=== PATIENT | male | born 1945 | race Caucasian/White ===

== ENCOUNTER 2017-01-09 18:40 | Observation (INO) | payer MEDICARE, BC ==
[~2017-01-09] VITALS: Ht 172.7 cm; Wt 121.5 kg
--- NOTE | ~2017-01-09 | HEMODYNAMI ---
PATIENT:BEST DENT MEDICAL RECORD: [id number] : 45 LOCATION:[address] ADMISSION DATE: 01/09/17 Generatedon:01/10/201716:39 Patient name: BEST DENT Patient #: [id number] SSN: : 1945 Date of study: 01/10/2017 Page: Of Hemodynamic Procedure Report Patient Data Patient Demographics Procedure consent was obtained First Name: BEST Gender: Male Last Name: JAILENE : 1945 [facility] Initial: GABBIE Age: 71 year(s) Patient #: [id number] Race: Additional ID: [id number] Contact details Address: [address] [place] [address] State: [place] City: [place] Zip code: [address] Past Medical History Allergies: No known allergies Admission Admission Data Admission Date: 01/09/2017 Admission Time: 18:40 Room #: 2121 Procedure Procedure Types Cath Procedure Diagnostic Procedure LHC LHC w/Coronaries PCI Procedure Coronary Stent Initial Miscellaneous Procedures Moderate Sedation up to 30 minutes Procedure Description Procedure Date Procedure Date: 01/10/2017 Procedure Start Time: 16:20 Procedure End Time: 16:38 Procedure Staff Name Function Mike José MD Performing Physician Dieudonne Zamora RT Scrub Anahi Best RT Monitor Marylu Skinner RN Nurse Procedure Data Cath Procedure Fluoroscopy Diagnostic fluoroscopy Total fluoroscopy Time: 3.1 time: 3.1 min min Diagnostic fluoroscopy Total fluoroscopy dose: dose: 533.2 mGy 533.2 mGy Contrast Material Contrast Material Type Amount (ml) Isovue 300 82 Entry Location Entry Primary Successful Side Size Upsize Upsize Entry Closure Lloyd ccessful Closure Location (Fr) 1 (Fr) 2 (Fr) Remarks Device Remarks Radial Right 6 Fr Mechanical artery Short Compression Estimated blood loss: 10 ml Diagnostic catheters Device Type Used For End Catheter Placement Terumo 5Fr Ham 110cm LV Angiography catheter Terumo 5Fr Ham 110cm Right Coronary catheter Angiography Procedure Complications No complications Procedure Medications Medication Administration Route Dosage Oxygen NC 2 l/min Heparin Flush Bag added to field 2 bags (1000units/500ml NS) Lidocaine 2% added to field 20 Radial Cocktail added to field 1 syringe (Verapomil 2mg/Nitro 400mcg/Heparin 1500units) Fentanyl I.V. 50 mcg Versed I.V. 1 mg Fentanyl I.V. 25 mcg Versed I.V. 0.5 mg Radial Cocktail I.A. 1 syringe (Verapomil 2mg/Nitro 400mcg/Heparin 1500units) Heparin Bolus I.V. 4000 units Plavix P.O. 75 mg Hemodynamics Rest Heart Rate: 87 (bpm) Snapshots Pre Cath Intra NCS Post Cath Vital Signs Time Heart Resp SPO2 NIBP (mmHg) Rhythm Pain Sedation Rate (ipm) (%) Status Level (bpm) 16:11:52 75 16 94 170/93(142) NSR 0 (11) 10(A) , No pain 16:16:37 72 17 92 171/90(131) NSR 0 (11) 9(A) , No pain 16:21:19 73 18 95 163/97(133) NSR 0 (11) 9(A) , No pain 16:25:48 73 19 97 116/70(86) NSR 0 (11) 9(A) , No pain 16:31:18 81 16 93 156/77(117) NSR 0 (11) 9(A) , No pain 16:35:54 79 9 94 140/82(106) NSR 0 (11) 10(A) , No pain Medications Time Medication Route Dose Verified Delivered Reason Note s Effectiveness by by 16:12:38 Oxygen NC 2 l/min Marylu Marylu used for Skinner Skinner tub wash operator RN 16:12:45 Heparin Flush added 2 bags Marylu Marylu used for Bag to Skinner Skinner procedure (1000units/500ml field RN RN NS) 16:12:53 Lidocaine 2% added 20ml Marylu Marylu used for to vial Skinner Skinner procedure field RN RN 16:13:01 Radial Cocktail added 1 Marylu Marylu used for (Verapomil to syringe Skinner Skinner procedure 2mg/Nitro field RN RN 400mcg/Heparin 1500units) 16:15:40 Fentanyl I.V. 50 mcg Marylu Marylu for sedation Skinner Skinner RN RN 16:15:45 Versed I.V. 1 mg Marylu Marylu for sedation Susanne Skinner RN RN 16:22:22 Fentanyl I.V. 25 mcg Marylu Marylu for sedation Susanne Skinner RN RN 16:22:25 Versed I.V. 0.5 mg Marylu Marylu for sedation Susanne Skinner RN RN 16:23:33 Radial Cocktail I.A. 1 Marylu Mike for (Verapomil syringe Susanne José MD vasodilation 2mg/Nitro RN 400mcg/Heparin 1500units) 16:30:25 Heparin Bolus I.V. 4000 Marylu Marylu for units Susanne Skinner anticoagulation RN RN 16:34:01 Plavix P.O. 75 mg Marylu Marylu for Skinner Susanne antiplatelet RN RN therapy Procedure Log Time Note 15:50:06 Marylu Skinner RN sent for patient. Start room use. 15:50:07 Time tracking: Regular hours 15:50:10 Plan of Care:Hemodynamics will remain stable., Cardiac rhythm will remain stable., Comfort level will be maintained., Respiratory function will remain adequate., Patient/ family verbilizes understanding of procedure., Procedure tolerated without complication., Recovers from procedure without complications.. 16:09:04 Patient received from PCU to CCL 3 Alert and oriented. Tansferred to table in Supine position. 16:09:05 Warm blankets applied, and rashmi hugger turned on for patient comfort. 16:09:05 Correct patient and procedure confirmed by team. 16:09:06 Signed procedure consent form obtained from patient. 16:09:07 ECG and BP/O2 sat monitors applied to patient. 16:09:08 Full Disclosure recording started 16:10:07 Vital chart was started 16:10:10 Rhythm: sinus rhythm 16:10:17 H&P Date Dictated: 01/10/2017 Within 30 days and on chart., H&P Addendum completed by physician on day of procedure. (MUST COMPLETE FOR ALL OUTPATIENTS). 16:10:18 Pre-procedure instructions explained to patient. 16:10:18 Pre-op teaching completed and patient verbalized understanding. 16:10:19 Family in patients room. 16:10:25 Patient NPO since Midnight. 16:10:32 Patient allergic to No known allergies 16:10:35 Is the patient allergic to Iodine/contrast media? No. 16:10:36 Is patient on blood thinner?Yes 16:10:38 ACC The patient was administered the following blood thiners within the last 24 hours: ACCPlavix 16:10:44 Patient diabetic? Yes. 16:10:45 If diabetic: On Metformin? Yes 16:10:49 If on Metformin: Last Dose? 01/09/2017 16:10:54 Previous problem with sedation/anesthesia? No ? 16:10:55 Snore? Yes 16:10:55 Sleep apnea? Yes 16:10:56 Deviated septum? No 16:10:57 Opens mouth fully? Yes 16:10:58 Sticks out tongue? Yes 16:11:04 Airway obstruction? No ? 16:11:06 Dentures? No ? 16:11:09 Pre procedure: right dorsailis pedis pulse 2+ Normal; easily identifiable; not easily obliterated 16:11:11 Modified Chung's test Ulnar < 7 seconds 16:11:13 Patient pain scale 0/10 ?. 16:11:16 IV patent on arrival in left hand with 0.9% NaCl at [facility]. 16:11:21 Lab results completed and on chart. 16:11:24 Right Radial & Right Groin area was prepped with chlora-prep and draped in sterile fashion 16:11:24 Alarms reviewed by R. N. 16:11:25 Sharps counted by scrub and verified by R.N. 16:11:31 Use device set Radial Dx 16:11:31 Acist Syringe opened to sterile field. 16:11:32 Medline Cath Pack opened to sterile field. 16:11:32 Bag Decanter opened to sterile field. 16:11:33 Terumo 6Fr Slender Glidesheath opened to sterile field. 16:11:33 St Huber 260cm J .035 wire opened to sterile field. 16:11:33 Acist Hand Control opened to sterile field. 16:11:34 Acist Manifold opened to sterile field. 16:11:34 Tegaderm 4 x 4 opened to sterile field. 16:12:38 Oxygen 2 l/min NC was administered by Marylu Skinner RN; used for procedure; 16:12:45 Heparin Flush Bag (1000units/500ml NS) 2 bags added to field was administered by Marylu Skinner RN; used for procedure; 16:12:53 Lidocaine 2% 20ml vial added to field was administered by Marylu Skinner RN; used for procedure; 16:13:01 Radial Cocktail (Verapomil 2mg/Nitro 400mcg/Heparin 1500units) 1 syringe added to field was administered by Marylu Skinner RN; used for procedure; 16:13:37 Final Timeout: patient, procedure, and site verified with staff and physician. All members of the team are in agreement. 16:13:39 Right Radial & Right Groin site verified by team. 16:13:41 Physical assessment completed. ASA score P 2 - A patient with mild systemic disease as per Mike José MD. 16:13:44 Sedation plan: IV Moderate Sedation Versed, Fentanyl 16:15:40 Fentanyl 50 mcg I.V. was administered by Marylu Skinner RN; for sedation; 16:15:45 Versed 1 mg I.V. was administered by Marylu Skinner RN; for sedation; 16:20:19 Procedure started. 16:20:34 Local anesthetic to right radial artery with Lidocaine 2% by Mike José MD.INITIAL ACCESS ONLY 16:21:12 Cook 21G 4cm Radial Needle opened to sterile field. 16:22:22 Fentanyl 25 mcg I.V. was administered by Marylu Skinner RN; for sedation; 16:22:25 Versed 0.5 mg I.V. was administered by Marylu Skinner RN; for sedation; 16:22:32 A 6 Fr Short sheath was inserted into the Right Radial artery 16:22:35 Zero performed for pressure channel P1 16:23:09 Baseline sample Acquired. 16:23:33 Radial Cocktail (Verapomil 2mg/Nitro 400mcg/Heparin 1500units) 1 syringe I.A. was administered by Mike José MD; for vasodilation; 16::41 A Terumo 5Fr Ham 110cm catheter was advanced over the wire and used for LV Angiography. 16:24:37 LV gram done using RILEY 16:24:42 Injector settings: Ml/sec: 5, Volume: 15, 16:24:52 EF : 60 % 16:25:19 A Terumo 5Fr Ham 110cm catheter was advanced over the wire and used for Right Coronary Angiography. 16:25:48 Catheter removed. 16:25:56 Cordis 6FR XBLAD 3.5 guide catheter opened to sterile field. 16:26:07 6 Fr XBLAD 3.5 guide catheter was inserted over the wire 16:28:33 LCA angiography performed. 16:29:01 HashParade BasixCompak Inflation Kit opened to sterile field. 16:29:06 Rodriguez Whisper J 300cm 0.014 guide wire opened to sterile field. 16:30:14 Whisper wire advanced. 16:30:25 Heparin Bolus 4000 units I.V. was administered by Marylu Skinner RN; for anticoagulation; 16::28 Inflation Number: 1 A Biofreedom 3.5 x 11 stent (No Cost Implant) was prepped and advanced across the Mid LAD. The stent was deployed at 17 VITO for 0:06 (min:sec). 16:31:50 Stent catheter was removed intact over wire. 16:31:50 Wire removed. 16:31:50 Guide catheter removed. 16::58 Sheath removed intact; hemostasis achieved with Mechanical Compression to the Right Radial artery. 16:32:01 Procedure ended.(Physican Out) 16:32:17 Terumo TR Band Large opened to sterile field. 16:32:28 Fluoroscopy time 03.10 minutes. 16:32:32 Fluoroscopy dose: 533.2 mGy 16:32:32 Flurop Dose total: 533.2 16:32:35 Contrast amount:Isovue 300 82ml. 16:32:36 Sharps counted by scrub and verified by R.N. 16:32:39 TR band inflated with 12cc of air. 16:32:39 Insertion/operative site no bleeding no hematoma. 16:32:46 Post right radial artery:stable, clean and dry 16:32:47 Post Procedure Pulses reassessed and unchanged 16:32:52 Post-procedure physical assessment completed. ASA score P 2 - A patient with mild systemic disease as per Mike José MD. 16:32:54 Post procedure rhythm: unchanged. 16:32:56 Estimated blood loss: 10 ml 16:32:57 Post procedure instruction explained to patient.Patient verbalizes understanding. 16:32:58 Patient needs reinforcement of post procedure teaching. 16:33:07 Procedure type changed to Cath procedure, Diagnostic procedure, LHC, LHC w/Coronaries, PCI procedure, Coronary Stent Initial, Miscellaneous Procedures, Moderate Sedation up to 30 minutes 16:33:13 Procedure Complication : No complications 16:33:17 See physician's report for complete and final results. 16:34:01 Plavix 75 mg P.O. was administered by Marylu Skinner RN; for antiplatelet therapy; 16:37:12 Procedure and supply charges have been captured, reviewed, submitted and are correct. 16:37:13 Vital chart was stopped 16:37:15 Report given to PCU. 16:37:18 Patient transfered to PCU with Bed. 16:38:17 Procedure ended. 16:38:17 Full Disclosure recording stopped 16:38:48 End room use (Document Last) Intervention Summary Intervention Notes Time ActionType Lesion and Equipment Action# Pressure Duration Attributes Used 16:31:28 Place stent Mid LAD Biofreedom 1 17 00:06 3.5 x 11 stent (No Cost Implant) Device Usage Item Name Manufacture Quantity Catalog Hospital Part Current Minimal Lot# / Number Charge Number Stock Stock Serial# Code Acist Acist 1 08059 059304 950847 790917 20 Syringe Medical Systems Inc Medline Cardinal 1 [id number] 060460 13261 863925 5 Cath Pack Health Bag Microtek 1 2002S 525297 09282 784331 5 Showcase Gig Medical Inc. Terumo 6Fr Terumo 1 [id number] 789866 005330 525567 [address] St Huber 1 259732 496131 518939 333092 30 260cm J .035 wire Acist Hand Acist 1 06526 992797 930502 759757 5 Control Medical Systems Inc Acist Acist 1 88697 167419 263763 611096 5 Manifold Medical Systems Inc Tegaderm 4 3M 1 1626W 617892 247863 856948 5 x 4 Cook 21G Cook Medical 1 K85142 119028 606699 487072 5 4cm Radial Needle Terumo 5Fr Terumo 1 40-1144 609666 206692 407727 5 Ham 110cm catheter Cordis 6FR Cardinal 1 [id number] 078786 698279 746311 10 XBLAD 3.5 Health guide catheter Merit Merit 1 SR7595 802631 076929 340324 15 The Daily Muse Medical Inflation Kit Rodriguez Rodriguez 1 [id number] 836584 735978 659121 5 Whisper J Vascular 300cm 0.014 guide wire Biofreedom Biosensors 1 [place] 418791 801768 338938 5 [id number] 3.5 x 11 [place] SA stent (No Cost Implant) Terumo TR Terumo 1 [id number] 802210 453599 708227 40 Band Large Signature Audit [place] Stage Time Signature Unsigned Intra-Procedure 01/10/2017 Anahi 4:38:58 PM Counts RT(R) Signatures Monitor : Anahi Signature : Counts RT Date : Time : [place] [address] [place] [address]
[~2017-01-09 18:40] MED LIST: ALTACE10 MG PO; AMBIEN10 MG PO; ASPIRIN 81 MG E81 MG PO; ASPIRIN EC81 M1 PO; ASPIRIN325 MG PO; CELEXA20 MG PO; DITROPAN X5 MG/BOTTL PO; ECOTRIN325 MG PO; FERRETTS324 MG PO; FLOMAX0.4 MG PO; GLUCOPHAGE500 MG PO; HYDROCODON-ACE1 EAC7 PO; HYDROCODONE-APA1 TAB PO; IRON PO; ISOSORBIDE DINI30 MG PO; LASIX80 MG PO; LEVOTHROID100 MCG PO; LIPITOR80 MG PO; NITROSTAT0.4 MG SL; NORCO 10/325 TA1 TA1 PO; NORVASC10 MG PO; PEPCID20 MG PO; PLAVIX75 MG PO; PROSCAR5 MG PO; PROTONIX40 MG PO; REQUIP0.25 MG; REQUIP0.5 MG PO; REQUIP1 MG PO; TENORMIN25 MG PO
[2017-01-09 19:00] VITALS: BP 168/90
[2017-01-09] MEDS ORDERED: BUSPAR10 MG PO (21:33)
[2017-01-09] MEDS ORDERED: PENICILLIN V P500 MG PO (21:34)
[2017-01-09 22:35] LABS: CKMB 0.7 U/L (0.0-3.6); CREATINE KINASE 91 UL (21-232); TROPONIN-I < 0.017 ng/mL (0.000-0.060)
[2017-01-09 22:47] VITALS: Ht 172.7 cm; Wt 121.5 kg
[2017-01-10] VITALS: BP 130/74
[2017-01-10 04:00] VITALS: BP 164/85
--- NOTE | 2017-01-10 07:23 | NUR ---
ASSESSMENT DONE. DENIES NEEDS.
[2017-01-10 08:00] VITALS: BP 150/80
--- NOTE | 2017-01-10 10:22 | NUR ---
RESP UL ON . EATING BRK WITHOUT NEEDS VOICED. CALL LIGHT IN REACH. WILL CONT. PLAN OF CARE.
[2017-01-10 12:00] VITALS: BP 153/68
[2017-01-10 12:29] LABS: BASOPHILS 0.5 % (0-2); EOSINOPHILS 5.6 % (0-7); HEMATOCRIT 39.9 % (42.0-54.0); HEMOGLOBIN 12.9 g/dL (13.5-17.5); IMMATURE GRANULOCYTES 0.4 % (0-5); MCH 30.3 pg (26.0-34.0); MCHC 32.3 g/dL (31.0-37.0); MCV 93.7 fL (80.0-100.0); MEAN PLATELET VOLUME 10.7 fL (7.4-10.4); NEUTROPHILS 60.5 % (40-80); PLATELET COUNT 159 10x3/uL (130-400); RBC 4.26 10x6/uL (4.20-6.10); RDW 14.8 % (11.5-14.5); WBC 5.7 10x3/uL (4.8-10.8)
[2017-01-10 12:38] LABS: CALC OSMOLALITY 283 mosm/kg (275-300); CALCIUM 8.8 mg/dL (8.5-10.1); CARBON DIOXIDE 26.9 mmol/L (21.0-32.0); CHLORIDE - SERUM 105 mmol/L (98-107); POTASSIUM - SERUM 3.7 mmol/L (3.5-5.1); SODIUM 140 mmol/L (136-145); UREA NITROGEN 12 mg/dL (7-18); eGFR NON AFRICAN AMERICAN 78 mL/min (90-120)
[2017-01-10 12:46] LABS: GLUCOSE 189 mg/dL (74-106)
--- NOTE | 2017-01-10 15:55 | NUR ---
TO EXTRACT MIXER PER BED
[2017-01-10 16:00] VITALS: BP 149/80
--- NOTE | 2017-01-10 16:50 | NUR ---
RETURNED FROM CARTRIDGE FILLER WITH TR-BAND TO RT WRIST. FAMILY AT SIDE.
--- NOTE | 2017-01-10 17:59 | NUR ---
WITHOUT CHANGES OR DISTRESS NOTED AT THIS TIME.
[2017-01-10 19:00] VITALS: BP 139/66
--- NOTE | 2017-01-10 20:30 | NUR ---
RIGHT WRIST TR BAND REMAINSING AIR RELEASED. TR BAND REMOVED AND DRESSING APPLIED TO WRIST. PT KONG WELL. INSTRUCTED TO NOT LIFT ANYTHING HEAVIER THAN 5 LBS AND TO KEEP DRESSING CDI. NOTIFY NURSE IF SWELLING, PAIN OR BLEEDING OCCUR. PT VERBALIZED UNDERSTANDING. WILL MONITOR.
--- NOTE | 2017-01-10 23:44 | NUR ---
PT RESTING WELL WITHOUT C/O OR DISTRESS NOTED. NO CHANGES NOTED IN ASSESSMENT. CALL LIGHT WITHIN REACH. WILL CONT TO MONITOR.
[2017-01-11 04:00] VITALS: BP 173/89
--- NOTE | 2017-01-11 07:45 | NUR ---
PATIENT IS RESTING QUIETLY WITH EYES CLOSED, HOB UP 60 DEGREES AND MOUTH AJAR. DID NOT DISTURB. MEDICAL PRACTICE MANAGER HAS TAKEN HIS VS TODAY AND THEY ARE WNL. CALL LIGHT IS WITHIN HIS REACH.
[2017-01-11 08:03] VITALS: BP 163/77
--- NOTE | 2017-01-11 09:00 | NUR ---
PATIENT RESTING WITH EYES CLOSED WHEN I ENTER ROOM. HE AWAKENED EASILY TO MY VOICE, BREAKFAST TRAY ON THE [id number]-CZI-OSRTV. MEDICATIONS TAKEN, DISCUSSED. HE IS WITHOUT C/O ANY KIND AND IS HOPING TO GO HOME TODAY.
--- NOTE | 2017-01-11 11:19 | NUR ---
EKG DONE. HE STATES THAT HE SELDOM EVER SLEEPS WITHOUT HIS CPAP. HE BELIEVES THAT HE WILL BE GOING HOME TODAY, HE HAS SEEN DR. GALVEZ. DENIES NEEDS, CALL LIGHT IS WITHIN REACH.
[2017-01-11 11:46] VITALS: BP 139/81
--- NOTE | 2017-01-11 14:00 | NUR ---
PATIENT DISCHARGED HOME. REVIEWED INSTRUCTIONS, PRESCRIPTIONS GIVEN, WOUND CARE DISCUSSED, NEED FOR FOLLOW UP APPT DISCUSSED. PATIENT AND PARTNER VOICED UNDERSTANDING. IV REMOVED FROM THE LEFT FA. WHEELED TO WAITING CAR.
--- NOTE | 2017-01-13 10:11 | OP ---
PATIENT NAME: BEST DENT MEDICAL RECORD: [id number] :45 LOCATION:D.M2 D.2121 ADMISSION DATE:01/09/17 SURGEON: CARMEL GALVEZ MD DATE OF OPERATION: 01/10/2017 PROCEDURES: 1. PTCA stent LAD. 2. Left heart catheterization. 3. Selective coronary angiography. 4. Left ventriculogram. INDICATION: Angina and coronary artery disease. PROCEDURE: After informed consent was obtained, after detailed explanation of risks, benefits as well as alternative therapies, the patient elected to proceed with angiogram and angioplasty. The right radial area was prepped and draped in normal sterile fashion. Right radial artery was cannulated via modified Seldinger technique with placement of 6-English sheath. All catheters exchanged through this sheath. FINDINGS: The left ventriculogram was performed in standard 30-degree RILEY view, reveals good cardiac wall motion throughout all segments. Overall ejection fraction estimated at 55-60%. SELECTIVE CORONARY ANGIOGRAPHY: 1. Left main has no significant angiographic disease. 2. Left anterior descending has previously placed stents. There is 70% in-stent restenosis in the mid vessel. 3. Left circumflex shows moderate irregularities, but no flow-limiting stenosis. Previously placed stents are widely patent. 4. Right coronary is small, nondominant, diffusely diseased. PTCA STENT OF THE LAD: The stent used is a 3.5 x 11 mm BioFreedom stent taken to 17 atmospheres. Result was 0% residual stenosis with advent JC-3 flow. This lesion was an 8-mm lesion in a 3.5-mm vessel. JC-3 flow before and after intervention, 0% residual stenosis after the intervention. OVERALL IMPRESSION: Successful percutaneous transluminal coronary angioplasty stent of the left anterior descending going from 70% in-stent restenosis to 0% residual stenosis. TRANSINT:[id number] Voice Confirmation ID: [id number] DOCUMENT ID: [id number] CARMEL GALVEZ MD at 1011 CC: [id number] DICTATION DATE: 01/10/17 1647 QUANTITATIVE MANAGER: 01/11/17 0153 DIS IN 01/11/17 [address] [address] [place] [address]
--- NOTE | 2017-01-13 10:11 | DS ---
PATIENT:BEST GALVEZ :45 MEDICAL RECORD: [id number] DISCHARGE SUMMARY ADMISSION DATE: 01/09/17 DISCHARGE DATE: 01/11/17 DISCHARGE DIAGNOSES: 1. Angina. 2. Coronary artery disease. 3. PTCA stent this admission. 4. Hypertension. 5. Hyperlipidemia. HOSPITAL COURSE: Mr. Galvez presents with anginal symptomatology, found to have single vessel coronary artery disease, underwent successful PTCA stent with an uneventful postop course. He was discharged home to continue aspirin and Plavix for next 30 days. TRANSINT:[id number] Voice Confirmation ID: [id number] DOCUMENT ID: [id number] CARMEL GALVEZ MD at 1011 CC: [id number] DICTATION DATE: 01/11/17 1034 CARE ASSOCIATE: 01/11/17 2343 DIS IN 01/11/17 [address] [address] [place] [address]
--- NOTE | 2017-01-13 10:11 | HP ---
PATIENT: BEST GALVEZ MEDICAL RECORD: [id number] ACCOUNT: [id number] LOCATION:[facility].2121 : 45 ADMISSION DATE: 01/09/17 HISTORY AND PHYSICAL EXAMINATION DIAGNOSES: 1. Unstable angina. 2. Coronary artery disease. 3. Previous cardiac intervention. 4. Hypertension. HISTORY OF PRESENT ILLNESS: Mr. Galvez has been having increasing episodes of chest pain, chest discomfort for the past 3 weeks. It has gotten to the point of unstable rest pain. He does have a past cardiac history. Last cardiac intervention was over a year ago. He does have a fractured elbow from a fall 4 months ago as well as a ganglion cyst on the left. He is in need of operative repair of these, but his anginal chest discomfort has come to the forefront. He is now here with angina. His troponin was normal. His EKG is with no acute ST-T abnormalities. REVIEW OF SYSTEMS: The patient reports easy bruising but reports no swollen glands. The patient reports no fever, no night sweats, no significant weight gain, no significant weight loss. No significant exercise tolerance. The patient reports no dry eyes, no irritation, no vision change. Patient reports no difficulty hearing and no ear pain. Patient reports no frequent nose bleeds or nose and sinus problems. Patient reports on arm pain on exertion. No shortness of breath while lying down. No history of heart murmur. Patient reports no cough, no wheezing or coughing up blood. Patient reports no abdominal pain, no vomiting. Normal appetite. No diarrhea and not vomiting blood. No nausea and no constipation. Patient reports no incontinence. No difficulty urinating. No hematuria. No increased frequency. Patient reports no muscle aches. No weakness, no arthralgias, no back pain. No swelling of the extremities. Patient reports no abnormal mole, no jaundice, no rashes. Reports no loss of consciousness. No weakness and no numbness. No seizures, dizziness, or headaches. The patient reports no depression, no sleep disturbance, feeling safe in a relationship and no alcohol abuse. Patient reports on fatigue. Reports no runny nose or sinus pressure. No itching, no hives, and no frequent sneezing. PHYSICAL EXAMINATION: GENERAL APPEARANCE: Well-nourished, well-developed, appears stated age. Level of distress, comfortable. PSYCHIATRIC: Mental status, alert, normal affect. Orientation, oriented to time, place and person. EYES: Lids and conjunctiva, noninjected. No discharge, no pallor. ENT: Lips, teeth, gums, normal dentition. Oropharynx, no cyanosis, no pallor. NECK: Carotid arteries, bilateral normal upstroke, no bruits, no thrills. JUGULAR VEINS: No jugular venous pressure or distention. CERVICAL LYMPH NODES: Nontender, nonenlarged. THYROID: Not enlarged. Nontender. No nodules. LUNGS: Respiratory effort, unlabored. CHEST: Normal curvature. No thoracic deformity. No chest wall tenderness. Percussion, resonant. Auscultation, clear. No wheezes, no rales, no rhonchi. CARDIOVASCULAR: Precordial exam, nondisplaced. No heaves or pericardial thrills. Rate and rhythm, regular. Heart sounds, normal S1, normal S2. No S3, HISTORY AND PHYSICAL [id number] JAILENE,BEST GABBIE no gallop, no rub. Systolic murmur, not heard. Diastolic murmur, not heard. EXTREMITIES: No cyanosis, no edema. Peripheral pulses, full and equal in all extremities, except as noted. No bruits appreciated. ABDOMEN: Soft, nondistended. Normal aorta. No bruit. Nontender. No masses. Liver, nontender, no hepatomegaly. Spleen, nontender, no splenomegaly. MUSCULOSKELETAL: No joint tenderness. No joint swelling. No erythema. NEUROLOGICAL: Normal gait, normal strength, normal tone. SKIN: Warm and dry. OVERALL IMPRESSION: Chest discomfort compatible with angina in an unstable fashion, most likely has recurrent hemodynamically significant coronary artery disease. Due to the fact that he has an upcoming operation, we will proceed with coronary angiography and stent. With a stent that will require only 30 days of aspirin and Plavix we can get off that for the operative repair. TRANSINT:[id number] Voice Confirmation ID: [id number] DOCUMENT ID: [id number] CARMEL GALVEZ MD at 1011 CC: [id number] DICTATION DATE: 01/10/17 1007 COTTON FARMWORKER: 01/10/17 1052 DIS IN 01/11/17 [facility] [address] [place] [address]
== END 2017-01-11 14:00 | disposition home or self-care (01) ==
LOC: OBSVTIME 18:40 → D.M2 18:40
PROVIDERS: Internal Medicine Interventional Cardiology; ADMIT Internal Medicine Interventional Cardiology
DX: I25.119 Atherosclerotic heart disease of native coronary artery with unspecified angina pectoris (principal); T82.855A Stenosis of coronary artery stent, initial encounter; Y84.0 Cardiac catheterization as the cause of abnormal reaction of the patient, or of later complication, without mention of misadventure at the time of the procedure; Z00.6 Encounter for examination for normal comparison and control in clinical research program; I10 Essential (primary) hypertension; E78.5 Hyperlipidemia, unspecified
CPT/HCPCS: 93458; C9600

== ENCOUNTER 2017-04-13 15:12 | Inpatient (IN) | payer MEDICARE, BC ==
[~2017-04-13 15:12] MED LIST changes: +BUSPAR10 MG PO; +PENICILLIN V P500 MG PO
--- NOTE | 2017-04-13 15:15 | NUR ---
ARRIVE TO ROOM VIA EMS STRETCHER FROM [facility]. ALERT AND ORIENTED X4. AMBULATES TO BED. GAIT STEADY. OXYGEN AT 3L NC. USES HOME OXYGEN. REPORTS CHEST DISCOMFORT. CONTINUE ADMISSION PROCESS. REFUSES SCDs. AMBULATORY. GAIT STEADY.
[2017-04-13] MEDS ORDERED: CELEXA40 MG PO (15:24)
[2017-04-13 17:23] VITALS: BP 131/64; BMI 40.2
--- NOTE | 2017-04-13 19:00 | NUR ---
RECEIVED REPORT AND ASSUMED PT CARE FROM DAY SHIFT NURSE @ THIS TIME.
[2017-04-13] MEDS ORDERED: AMBIEN5 MG PO (19:36)
--- NOTE | 2017-04-13 19:45 | NUR ---
PT'S SIGNIFICANT OTHER AT NURSES STATION, CONCERNED IF PT WILL BE GETTING HIS PM MEDS TONIGHT. MEDICATION RECONCILED WITH PT AND SIGNIFICANT OTHER AT THE BEDSIDE. CALL TO DR ZARAGOZA, IMMEDIATELY RETURNS CALL. MEDICATIONS REVIEWED THAT PT WILL NEED TONIGHT AND ORDERS RECEIVED FOR PM MEDS TONIGHT. PT AND HIS SIGNIFICANT OTHER UPDATED ON POC AND VERBALIZED UNDERSTANDING. AWAITING NURSE FIBERGLASS AUTOBODY REPAIRER TO ACCESS MEDS JUST ORDERED. WILL MONITOR.
[2017-04-13 20:00] VITALS: BP 126/59
--- NOTE | 2017-04-13 21:30 | NUR ---
LEFT AC IV SITED IN HOSPITAL IN [place] HALF PULLED OUT OF AC AND KINKED. REMOVED AT THIS TIME WITH TIP INTACT. IV RESITED WITH 22 GA ANGIOCATH TO LEFT FOREARM X 1 STICK AND PT TOLERATED WELL.
[2017-04-14] VITALS: BP 132/66
--- NOTE | 2017-04-14 | NUR ---
PT RESTING WELL WITHOUT C/O OR DISTRESS NOTED. NO NEEDS VOICED. CALL LIGHT WITHIN REACH. WILL CONT TO MONITOR.
[2017-04-14 04:00] VITALS: BP 117/65
[2017-04-14 05:45] LABS: BASOPHILS 0 % (0-2); EOSINOPHILS 0 % (0-7); HEMATOCRIT 37.8 % (42.0-54.0); HEMOGLOBIN 12.3 g/dL (13.5-17.5); IMMATURE GRANULOCYTES 0.1 % (0-5); MCH 30.2 pg (26.0-34.0); MCHC 32.5 g/dL (31.0-37.0); MCV 92.9 fL (80.0-100.0); MEAN PLATELET VOLUME 11.2 fL (7.4-10.4); MONOCYTES 3.1 % (2-11); NEUTROPHILS 87.8 % (40-80); PLATELET COUNT 166 10x3/uL (130-400); RBC 4.07 10x6/uL (4.20-6.10); RDW 14.4 % (11.5-14.5); WBC 7.7 10x3/uL (4.8-10.8)
[2017-04-14 06:06] LABS: ALBUMIN 2.9 g/dL (3.4-5.0); ANION GAP 18.1 mmol/L (8-16); BILIRUBIN - TOTAL 0.42 mg/dL (0.2-1.3); CALCIUM 8.2 mg/dL (8.5-10.1); CARBON DIOXIDE 23.4 mmol/L (21.0-32.0); CREATININE - SERUM 1.2 mg/dL (0.6-1.3); MAGNESIUM - SERUM 1.7 mg/dL (1.8-2.4); PHOSPHOROUS 2.3 mg/dL (2.5-4.9); POTASSIUM - SERUM 3.5 mmol/L (3.5-5.1); PROTEIN - SERUM 7.1 g/dL (6.4-8.2)
[2017-04-14 08:00] VITALS: BP 139/60
--- NOTE | 2017-04-14 11:56 | NUR ---
FSBS 259 REGULAR INSULIN 6 UNITS GIVEN SQ LT ARM
[2017-04-14 12:21] VITALS: BMI 40.1
[2017-04-14 16:00] VITALS: BP 143/71
[2017-04-14 19:00] VITALS: BP 141/70
--- NOTE | 2017-04-14 19:45 | NUR ---
RESUMED CARE OF PT, LYING IN BED RESPIRATIONS EVEN AND UNLABORED ON 3LPM VIA NC. 88 SR ON TELEMETRY. LEFT FOREARM SALINE LOCKED. COMPLAINTS OF HEADACHE. CALL LIGHT IN REACH. WILL CONTINUE TO MONITOR. SEE NURSE ASSESSMENT.
[2017-04-15] VITALS: BP 161/74
--- NOTE | 2017-04-15 01:06 | NUR ---
IV INFILTRATED, DC'D WITH TIP INTACT. 22 GAUGE X 1 STICK TO LEFT FOREARM.
--- NOTE | 2017-04-15 02:29 | NUR ---
LYING IN BED, CALL LIGHT IN REACH. WILL CONTINUE WITH PLAN OF CARE
[2017-04-15 04:00] VITALS: BP 160/63
[2017-04-15 05:51] LABS: BASOPHILS 0 % (0-2); EOSINOPHILS 0 % (0-7); HEMATOCRIT 38.3 % (42.0-54.0); HEMOGLOBIN 12.3 g/dL (13.5-17.5); IMMATURE GRANULOCYTES 0.2 % (0-5); LYMPHOCYTES 7.4 % (15-50); MCH 30.1 pg (26.0-34.0); MCHC 32.1 g/dL (31.0-37.0); MCV 93.6 fL (80.0-100.0); MEAN PLATELET VOLUME 11.1 fL (7.4-10.4); MONOCYTES 4.8 % (2-11); NEUTROPHILS 87.6 % (40-80); PLATELET COUNT 172 10x3/uL (130-400); RBC 4.09 10x6/uL (4.20-6.10); RDW 14.6 % (11.5-14.5); WBC 8.7 10x3/uL (4.8-10.8)
[2017-04-15 06:05] LABS: ANION GAP 14.3 mmol/L (8-16); CALCIUM 8.8 mg/dL (8.5-10.1); CARBON DIOXIDE 25.6 mmol/L (21.0-32.0); CREATININE - SERUM 1.2 mg/dL (0.6-1.3); POTASSIUM - SERUM 3.9 mmol/L (3.5-5.1)
--- NOTE | 2017-04-15 07:15 | NUR ---
RECEIVED PT IN BED EYES CLOSED RESP UNLABORED NAD NOTED
[2017-04-15 08:17] LABS: IMMUNOGLOBULIN E 31 IU/mL (0-100)
[2017-04-15 08:25] VITALS: BP 177/89
[2017-04-15 10:18] LABS: IMMUNOGLOBULIN A 252 mg/dL (61-437); IMMUNOGLOBULIN G 982 mg/dL (700-1600); IMMUNOGLOBULIN M 36 mg/dL (15-143)
--- NOTE | 2017-04-15 11:37 | NUR ---
FSBS 254 REGULAR INSU;IN 6 UNITS GIVEN SQ ABD
[2017-04-15 12:12] VITALS: BP 107/73
[2017-04-15 16:24] VITALS: BP 145/86
--- NOTE | 2017-04-15 19:30 | NUR ---
PT ALERT/ORIENTED. RESTING IN BED. PIV TO LFA SALINE LOCKED. O2 @ 3L/NC WITH NONLABORED RESPIRATIONS. SR PER TELEMETRY. VISITOR ASKING IF PATIENT CAN PLEASE HAVE A PAIN PILL. PT CAN HAVE PAIN MEDS EVERY 4 HOURS AND LAST DOSE WAS AT 1630. WILL PROVIDE NEXT DOSE CLOSER TO 2029. PT/VISITOR VOICED UNDERSTANDING.
[2017-04-15 20:00] VITALS: BP 109/76
--- NOTE | 2017-04-15 20:31 | NUR ---
BEDTIME MEDS GIVEN.
[2017-04-16] VITALS: BP 166/66
[2017-04-16 04:00] VITALS: BP 150/72
[2017-04-16 05:47] LABS: BASOPHILS 0 % (0-2); EOSINOPHILS 0 % (0-7); HEMATOCRIT 40.3 % (42.0-54.0); HEMOGLOBIN 13.1 g/dL (13.5-17.5); IMMATURE GRANULOCYTES 0.5 % (0-5); LYMPHOCYTES 10.1 % (15-50); MCH 30.4 pg (26.0-34.0); MCHC 32.5 g/dL (31.0-37.0); MCV 93.5 fL (80.0-100.0); MEAN PLATELET VOLUME 10.8 fL (7.4-10.4); MONOCYTES 6.2 % (2-11); NEUTROPHILS 83.2 % (40-80); PLATELET COUNT 197 10x3/uL (130-400); RBC 4.31 10x6/uL (4.20-6.10); RDW 14.7 % (11.5-14.5); WBC 9.7 10x3/uL (4.8-10.8)
[2017-04-16 07:10] LABS: CALC OSMOLALITY 293 mosm/kg (275-300); CALCIUM 8.8 mg/dL (8.5-10.1); CARBON DIOXIDE 24.1 mmol/L (21.0-32.0); CHLORIDE - SERUM 105 mmol/L (98-107); CREATININE - SERUM 0.9 mg/dL (0.6-1.3); POTASSIUM - SERUM 3.5 mmol/L (3.5-5.1); SODIUM 144 mmol/L (136-145); UREA NITROGEN 15 mg/dL (7-18); eGFR NON AFRICAN AMERICAN 88 mL/min (90-120)
[2017-04-16 07:13] LABS: GLUCOSE 205 mg/dL (74-106)
[2017-04-16 09:19] VITALS: BP 174/94
--- NOTE | 2017-04-16 10:51 | NUR ---
TELEMETRY CAF. UD GIVEN BY RT. CALL LIGHT IN REACH. WILL CONT. PLAN OF CARE.
[2017-04-16 12:09] VITALS: BP 156/66
[2017-04-16 14:54] VITALS: BP 159/73
[2017-04-16 19:00] VITALS: BP 150/73
--- NOTE | 2017-04-16 19:26 | NUR ---
RESUMED CARE OF PT, LYING IN BED RESPIRATIONS EVEN AND UNLABORED ON 3LPM VIA NC. 87 CAF WITH PVCS ON TELEMETRY. NO NEEDS AT THIS TIME, PLAN OF CARE DISCUSSED. CALL LIGHT IN REACH. WILL CONTINUE TO MONITOR. SEE NURSE ASSESSMENT.
[2017-04-17] VITALS: BP 120/62
--- NOTE | 2017-04-17 01:42 | NUR ---
IV INFILTRATED, DC'D WITH TIP INTACT. 22 GAUGE X 1 STICK TO LEFT FOREARM.
--- NOTE | 2017-04-17 02:42 | NUR ---
CALL LIGHT IN REACH, WILL CONTINUE WITH PLAN OF CARE.
[2017-04-17 04:00] VITALS: BP 157/81
[2017-04-17 04:23] LABS: BASOPHILS 0 % (0-2); EOSINOPHILS 0 % (0-7); HEMOGLOBIN 13.3 g/dL (13.5-17.5); LYMPHOCYTES 9.9 % (15-50); MCH 30.1 pg (26.0-34.0); MCHC 32.4 g/dL (31.0-37.0); MCV 92.8 fL (80.0-100.0); MEAN PLATELET VOLUME 10.3 fL (7.4-10.4); MONOCYTES 7.1 % (2-11); PLATELET COUNT 192 10x3/uL (130-400); RBC 4.42 10x6/uL (4.20-6.10); RDW 14.8 % (11.5-14.5); WBC 10.7 10x3/uL (4.8-10.8)
[2017-04-17 04:34] LABS: CALC OSMOLALITY 289 mosm/kg (275-300); CARBON DIOXIDE 28.4 mmol/L (21.0-32.0); CHLORIDE - SERUM 104 mmol/L (98-107); GLUCOSE 222 mg/dL (74-106); POTASSIUM - SERUM 3.7 mmol/L (3.5-5.1); SODIUM 141 mmol/L (136-145); UREA NITROGEN 17 mg/dL (7-18); eGFR NON AFRICAN AMERICAN 78 mL/min (90-120)
[2017-04-17 08:29] VITALS: BP 154/76
--- NOTE | 2017-04-17 09:32 | NUR ---
TELEMETRY AF. HR 105. RESP UL ON 02 3L NC. CALL LIGHT IN REACH. WILL CONT. PLAN OF CARE.
[2017-04-17 12:41] VITALS: BP 170/65
--- NOTE | 2017-04-17 13:04 | NUR ---
LEAVING FOR X-RAY BY W/C FOR CALE REYES.
--- NOTE | 2017-04-17 13:48 | NUR ---
Nutrition Follow Up: Pt to have swallow eval today. Pt is eating 100% meal avg on a diabetic diet with honey thick liquids. Wt stable. No BM since admit. Labs reviewed - Glucose continues elevated. Meds noted including Solu-Medrol. Rec continue current diet. RD following.
[2017-04-17 16:21] VITALS: BP 173/83
[2017-04-17 20:40] VITALS: BP 167/80
--- NOTE | 2017-04-18 00:09 | NUR ---
LYING IN BED WITH EYES CLOSED, CALL LIGHT IN REACH. WILL CONTINUE TO MONITOR.
[2017-04-18 00:52] VITALS: BP 147/82
[2017-04-18 04:45] VITALS: BP 181/92
[2017-04-18 05:34] LABS: BASOPHILS 0.1 % (0-2); EOSINOPHILS 0 % (0-7); HEMATOCRIT 41.1 % (42.0-54.0); HEMOGLOBIN 13.5 g/dL (13.5-17.5); IMMATURE GRANULOCYTES 1.6 % (0-5); LYMPHOCYTES 9.2 % (15-50); MCH 30.3 pg (26.0-34.0); MCHC 32.8 g/dL (31.0-37.0); MCV 92.2 fL (80.0-100.0); MEAN PLATELET VOLUME 10.3 fL (7.4-10.4); MONOCYTES 6.2 % (2-11); NEUTROPHILS 82.9 % (40-80); PLATELET COUNT 208 10x3/uL (130-400); RBC 4.46 10x6/uL (4.20-6.10); RDW 14.6 % (11.5-14.5)
[2017-04-18 05:44] LABS: CALC OSMOLALITY 287 mosm/kg (275-300); CALCIUM 9.2 mg/dL (8.5-10.1); CHLORIDE - SERUM 105 mmol/L (98-107); CREATININE - SERUM 0.9 mg/dL (0.6-1.3); GLUCOSE 269 mg/dL (74-106); POTASSIUM - SERUM 3.9 mmol/L (3.5-5.1); SODIUM 139 mmol/L (136-145); UREA NITROGEN 16 mg/dL (7-18); eGFR NON AFRICAN AMERICAN 88 mL/min (90-120)
--- NOTE | 2017-04-18 06:21 | NUR ---
NO CHANGES FROM PREVIOUS ASSESSMENT, CALL LIGHT IN REACH. WILL CONTINUE TO MONITOR.
[2017-04-18 08:00] VITALS: BP 170/92
--- NOTE | 2017-04-18 12:14 | NUR ---
Patient Name: BEST DENT Admission Status: Elective Accout number: [id number] Admission Date: 04-14-2017 : 1945 Admission Diagnosis: Attending: MIKHAIL ZARAGOZA Current LOS: 4 Anticipated DC Date: 04-18-2017 Planned Disposition: Home Primary Insurance: MEDICARE A & B PLANNED EXTERNAL PROVIDER, [facility], OUTPATIENT SPEECH THERAPY Discharge Planning Comments: * Is the patient Alert and Oriented? Yes 0 * How many steps to enter\exit or inside your home? 2-O / 1-I 0 * PCP DR. ANSARI 0 * Pharmacy [facility] IN [place] 0 * Preadmission Environment Home with Family 0 * ADLs Independent 0 * Equipment Cane CPAP Oxygen Walker 0 * Other Equipment HOME AND PORTABLE OXYGEN [facility] - MEDICAL EQUIPMENT PROVIDER PREFERENCE 0 * List name and contact numbers for known caregivers / representatives who currently or will assist patient after discharge: DAGO DE LA O, PARTNER, 0 * Community resources currently utilized None 0 * Please name any agencies selected above. NONE 0 * Additional services required to return to the preadmission environment? Yes * Can the patient safely return to the preadmission environment? Yes 0 * Has this patient been hospitalized within the prior 30 days at any hospital? No 0 CM MET WITH PT AND PARTNER IN ROOM TO DISCUSS DISCHARGE PLANNING AND NEEDS. PT REPORTS LIVING AT HOME INDEPENDENTLY WITH PARTNER. PT REPORTS HAVING OXYGEN, CPAP, CANE AND WALKER FROM [facility]. PT HAS NO OUTSIDE SERVICES ASSISTING IN THE HOME. CM DISCUSSED AVAILABILITY OF HOME HEALTH, REHAB SERVICES AND MEDICAL EQUIPMENT. PT WOULD LIKE OUTPATIENT SPEECH THERAPY AT [facility] IN [place], DENIES FURTHER DISCHARGE NEEDS. PT REPORTS HIS PARTNER IS HERE TO PICK HIM UP FOR DISCHARGE HOME. IMPORTANT MESSAGE FROM MEDICARE PROVIDED AND EXPLAINED. CM CALLED [facility], , SPOKE TO CHAD WHO WILL CONTACT PT TO ARRANGE OUTPATIENT SPEECH THERAPY. CM FAXED REFERRAL TO [facility] AT [phone]. Dry Chain Worker: Kirby Lion
--- NOTE | 2017-04-18 12:31 | NUR ---
IV AND TELEMETRY DCD. DC PLANS GIVEN. UNDERSTANDING VOICED. ESCORTED TO CAR BY W/C.
== END 2017-04-18 12:32 | disposition home or self-care (01) | DRG 191 ==
LOC: D.M2 15:12 → D.SDCHOLD 04-17 10:33 → D.M2 04-17 10:40
PROVIDERS: Internal Medicine Pulmonary Disease; ADMIT Internal Medicine Cardiovascular Disease
DX: J44.1 Chronic obstructive pulmonary disease with (acute) exacerbation (principal); I69.954 Hemiplegia and hemiparesis following unspecified cerebrovascular disease affecting left non-dominant side; I25.10 Atherosclerotic heart disease of native coronary artery without angina pectoris; E78.5 Hyperlipidemia, unspecified; E11.9 Type 2 diabetes mellitus without complications; E03.9 Hypothyroidism, unspecified; F32.9 Major depressive disorder, single episode, unspecified; I11.0 Hypertensive heart disease with heart failure; I50.9 Heart failure, unspecified; J30.9 Allergic rhinitis, unspecified; N40.0 Benign prostatic hyperplasia without lower urinary tract symptoms; G25.81 Restless legs syndrome